=== PATIENT | male | born 1955 | race Caucasian/White ===

== ENCOUNTER 2021-11-16 10:04 | Outpatient (REF) | payer OTHER, MEDICARE, SELFPAY | END 2021-11-16 10:05 | disposition home or self-care (01) | LOC: HO.HOSX 10:04 | PROVIDERS: Visit Provider Orthopaedic Surgery | DX: Z13.89 Encounter for screening for other disorder (principal) ==

== ENCOUNTER 2022-04-30 13:00 | Outpatient (RCR) | payer MEDICARE, SELFPAY | END 2022-08-02 15:04 | LOC: HO.PTWFD 13:00 | PROVIDERS: Absent Provider Physician Assistant; PCP Internal Medicine; Visit Provider Orthopaedic Surgery | DX: S43.431A Superior glenoid labrum lesion of right shoulder, initial encounter (principal) | CPT/HCPCS: 97110; 97161; 97164; 97535 ==